=== PATIENT | male | born 1955 | race Caucasian/White ===

== ENCOUNTER → 2017-12-24 | Day surgery (SDC) | payer OTHER ==
[~2017-12-24] MED LIST: ALBU8.5H8 INH; ALBUTEROL SULFATE 2.5 MG/3 ML NEBU. ONE; ASPI81TA50 PO; CARV3.12 PO; HYDR25TA9 PO; LIDOCAINE 2% PF Vial for OR 5 ML VIAL. ONE; METF500T5 PO; NIAC1000 PO; PROPOFOL 40 ML IV ONE; SIMV10TA PO; TELM80TA PO
== END ==
LOC: SURG 10:27
PROVIDERS: ATTEND Internal Medicine Gastroenterology
DX: Z12.11 Encounter for screening for malignant neoplasm of colon (principal); K63.5 Polyp of colon; E11.9 Type 2 diabetes mellitus without complications; I10 Essential (primary) hypertension; Z88.8 Allergy status to other drugs, medicaments and biological substances
CPT/HCPCS: 45380; 82947; 88305; J2704; J7613; J2001

== ENCOUNTER → 2020-07-25 | Outpatient (CLI) | payer MEDICARE, OTHER ==
[2017-12-24 13:30] VITALS: BP 127/61
[~2020-07-25] MED LIST changes: +ALBU2.5V8 INH; -ALBU8.5H8 INH; -ALBUTEROL SULFATE 2.5 MG/3 ML NEBU. ONE; +HYDR-2145 PO; -HYDR25TA9 PO; -LIDOCAINE 2% PF Vial for OR 5 ML VIAL. ONE; +METF500T16 PO; -METF500T5 PO; -PROPOFOL 40 ML IV ONE
== END ==
LOC: LAB 09:32
PROVIDERS: ATTEND Family Medicine
DX: U07.1 COVID-19 (principal)
CPT/HCPCS: U0003

== ENCOUNTER 2020-08-01 10:24 | Emergency (ER) | payer MEDICARE, OTHER ==
[~2020-08-01] VITALS: Ht 172.7 cm; Wt 91.0 kg
--- NOTE | 2020-08-01 10:39 | PHYS DOC ---
General Adult HPI: HPI: History obtained from patient. Patient is a 65-year-old male with a history of [id number] diabetes, asthma who presents with chief complaint of shortness of breath. Patient notes that he did test positive for Covid approximately 4 days ago. He states he is felt generally fatigued throughout that time.. He states that he began developing shortness of breath last night. He states he has also had a dry cough. Denies any orthopnea or bendopnea. Denies any objective fevers. Denies any chest pain. States he has been trying his albuterol Hailer at home with minimal relief. Denies any known exposure to coronavirus. Denies any recent steroids or antibiotics. Denies syncope. S tates he has had lack of appetite. Does not require oxygen at home. States that shortness breath seems to be worse when he ambulates. No other complaints. Review of Systems: Review of Systems: Constitutional: Positive for fatigue Eyes: Denies change in visual acuity HENT: Denies nasal congestion or sore throat Respiratory: Positive for cough and shortness of breath Cardiovascular: Denies chest pain or edema GI: Denies abdominal pain, nausea, vomiting, bloody stools or diarrhea : Denies dysuria Musculoskeletal: Denies back pain or joint pain Integument: Denies rash Neurologic: Denies headache, focal weakness or sensory changes Endocrine: Denies polyuria or polydipsia Lymphatic: Denies swollen glands Psychiatric: Denies depression or anxiety Allergies: Allergies: Allergies Coded Allergies Type Severity Reaction Last Updated Verified lisinopril Allergy Unknown 12/15/17 Yes Physical Exam: PE: Constitutional: Well developed, well nourished, no acute distress, non-toxic appearance. [] HENT: Normocephalic, atraumatic, bilateral external ears normal, oropharynx moist, no oral exudates, nose normal. [] Eyes: PERRLA, EOMI, conjunctiva normal, no discharge. [] Neck: Normal range of motion, no tenderness, supple, no stridor. [] Cardiovascular:Heart rate regular rhythm, no murmur [] Lungs & Thorax: 76% on room air. Rhonchorous breath sounds noted throughout. No obvious wheezes appreciated. Mildly tachypneic. No accessory muscle usage noted. Speaking in full sentences. Abdomen: soft, no tenderness, no masses, no pulsatile masses. [] Skin: Warm, dry, no erythema, no rash. [] Back: No tenderness, no CVA tenderness. [] Extremities: No tenderness, no cyanosis, no clubbing, ROM intact, no edema. [] Neurologic: Alert and oriented X 3, normal motor function, normal sensory function, no focal deficits noted. [] Psychologic: Affect normal, judgement normal, mood normal. [] Current Patient Data: Labs: Laboratory Tests Test 08/01/20 10:40 White Blood Count 8.5 x10^3/uL Red Blood Count 5.43 x10^6/uL Hemoglobin 15.2 g/dL Hematocrit 45.0 % Mean Corpuscular Volume 83 fL Mean Corpuscular Hemoglobin 28 pg Mean Corpuscular Hemoglobin Concent 34 g/dL Red Cell Distribution Width 13.3 % Platelet Count 349 x10^3/uL Neutrophils (%) (Auto) 88 % Lymphocytes (%) (Auto) 8 % Monocytes (%) (Auto) 3 % Eosinophils (%) (Auto) 0 % Basophils (%) (Auto) 0 % Neutrophils # (Auto) 7.5 x10^3uL Lymphocytes # (Auto) 0.7 x10^3/uL Monocytes # (Auto) 0.3 x10^3/uL Eosinophils # (Auto) 0.0 x10^3/uL Basophils # (Auto) 0.0 x10^3/uL Sodium Level 137 mmol/L Potassium Level 3.9 mmol/L Chloride Level 101 mmol/L Carbon Dioxide Level 26 mmol/L Anion Gap 10 Blood Urea Nitrogen 21 mg/dL Creatinine 1.0 mg/dL Estimated GFR (Cockcroft-Gault) 74.8 BUN/Creatinine Ratio 21 Glucose Level 141 mg/dL Calcium Level 8.6 mg/dL Magnesium Level 2.6 mg/dL Total Bilirubin 0.6 mg/dL Aspartate Amino Transf (AST/SGOT) 59 U/L Alanine Aminotransferase (ALT/SGPT) 60 U/L Alkaline Phosphatase 77 U/L Troponin I Quantitative < 0.017 ng/mL Total Protein 7.3 g/dL Albumin 2.4 g/dL Albumin/Globulin Ratio 0.5 Current Medications Medications (Trade) Dose Ordered Sig/Mariel Route PRN Reason Start Time Stop Time Status Last Admin Dose Admin Dexamethasone (Decadron) 10 mg 1X ONCE PO 08/01/20 10:45 08/01/20 10:46 DC 08/01/20 10:52 Albuterol Sulfate (Ventolin Hfa Inhaler) 3 puff Q4HRS W/A INH 08/01/20 11:00 08/01/20 10:47 Sodium Chloride 1,000 ml @ 100 mls/hr 1X ONCE IV 08/01/20 10:45 08/01/20 20:44 08/01/20 10:47 Dexamethasone Sodium Phosphate (Decadron) 10 mg STK-MED ONCE .ROUTE 08/01/20 10:43 08/01/20 10:44 DC Vancomycin HCl 2.5 gm/Sodium Chloride 500 ml @ 250 mls/hr 1X ONCE IV 08/01/20 11:30 08/01/20 11:30 DC Piperacillin Sod/ Tazobactam Sod 3.375 gm/Sodium Chloride 50 ml @ 100 mls/hr 1X ONCE IV 08/01/20 11:30 08/01/20 11:59 Vancomycin HCl 2 gm/Sodium Chloride 500 ml @ 250 mls/hr 1X ONCE IV 08/01/20 12:00 08/01/20 13:59 Vital Signs: Vital Signs Date Time Temp Pulse Resp B/P (MAP) Pulse Ox O2 Delivery O2 Flow Rate FiO2 08/01/20 11:15 76 18 110/62 (78) 92 Nasal Cannula 5.0 08/01/20 10:26 72 20 133/70 (91) 73 Room Air EKG: EKG: EKG consistent with normal sinus rhythm. Ventricular rate of 73 bpm. [place] normal. Intervals normal. No acute ischemic changes noted. [] Radiology/Procedures: Radiology/Procedures: [address] [address] IMAGING REPORT Signed PATIENT: JEROME CLARK ACCOUNT: [id number] : 1955 LOCATION: ER AGE: 65 SEX: M EXAM STATUS: REG ER ORD. PHYSICIAN: BETH NAGEL DO REASON: SOB, COVID +, COUGH PROCEDURE: CHEST AP ONLY Examination: XR CHEST 1V History: Reason: SOB, COVID +, COUGH / Comparison/Correlation: None Findings: Portable upright frontal view the chest was obtained. Heart size is normal. No pneumothorax. Patchy infiltrates in the left lower lung field. Right lung field is unremarkable. Elevation of right hemidiaphragm noted. Bony structures are intact. Impression: Left lower lung field patchy infiltrates. Follow-up to resolution recommended. Electronically signed by: Khari Dong MD (08/01/2020 11:15 AM) [id number] DICTATED AND SIGNED BY: KHARI DONG MD DATE: 08/01/20 1114 CC: PCP,SHARON; BETH NAGEL DO ~MTH0 0 [] Heart Score: Risk Factors: Risk Factors: DM, Current or recent (<one month) smoker, HTN, HLP, family history of CAD, obesity. Risk Scores: Score 0 - 3: 2.5% MACE over next 6 weeks - Discharge Home Score 4 - 6: 20.3% MACE over next 6 weeks - Admit for Clinical Observation Score 7 - 10: 72.7% MACE over next 6 weeks - Early Invasive Strategies Course & Med Decision Making: Course & Med Decision Making Pertinent Labs and Imaging studies reviewed. (See chart for details) [] Patient is a pleasant 65-year-old male who presents with chief complaint of shortness of breath. Patient did test positive for coronavirus approximately week ago. Chest x-ray does show diffuse interstitial pattern. Labs been grossly unremarkable. Initially the patient was 76% on room air. He did respond quickly to 5 L nasal cannula. He is satting at approximate 91% at this time. He showed no signs of respiratory deterioration or impending failure. He is currently 91% on nasal cannula. Patient was given oral Decadron. IV vancomycin and Zosyn were administered. Blood cultures pending. 1248: After being monitored in the emergency department patient did develop increasing oxygen requirement. He was escalated to a nonrebreather and has tolerated this well. Given his increase in oxygen requirement I do feel he would best be monitored at [facility]. Patient be transferred to their facility for further care. Antony Disclaimer: Antony Disclaimer: This electronic medical record was generated, in whole or in part, using a voice recognition dictation system. Departure Departure: Impression: Primary Impression: Acute respiratory failure with hypoxia Additional Impression: COVID-19 Disposition: 02 DC/TRF OTHER SHORT TERM HOS Condition: STABLE Referrals: PCP,SHARON (PCP) Critical Care Time The patient had a high probability of sudden, clinically significant deterioration, which required the highest level of physician preparedness to intervene urgently. I managed life or organ supporting interventions that required frequent re-assessment throughout their stay in the emergency department. The total critical care time spent managing their case, separate from other billable procedures, was 15 minutes. BETH NAGEL DO Aug 01, 2020 10:39
[2020-08-01] MEDS ORDERED: DEXAMETHASONE SOD PHOS 10 MG/ML VIAL. ONE (10:43)
[2020-08-01] MEDS ORDERED: DEXAMETHASONE 4 MG TABLET PO ONE (10:45)
[2020-08-01] MEDS ORDERED: IV NORMAL SALINE 1,000ML 1,000 ML IV ONE (10:45)
[2020-08-01] MEDS: ALBUTEROL SULFATE 8GM INHALER. INH SCH ×2 (10:47→19:05)
--- NOTE | 2020-08-01 11:03 | EKG ---
[address] [address] Test Date: 2020-08-01 Test Time: 10:53:46 Pat Name: JEROME CLARK Department: Room: Gender: M [employer]: JAMEY : 1955 Requested By: BETH NAGEL Order Number: [id number] Reading MD: Measurements Intervals [place] Rate: 73 P: WA: QRS: 13 QRSD: 84 T: 16 QT: 380 QTc: 422 Interpretive Statements ATRIAL FLUTTER ABNORMAL ECG RI6.02 No previous ECG available for comparison
--- NOTE | 2020-08-01 11:17 | RAD ---
Examination: XR CHEST 1V History: Reason: SOB, COVID +, COUGH / Comparison/Correlation: None Findings: Portable upright frontal view the chest was obtained. Heart size is normal. No pneumothorax . Patchy infiltrates in the left lower lung field. Right lung field is unremarkable. Elevation of rig ht hemidiaphragm noted. Bony structures are intact. Impression: Left lower lung field patchy infiltrates. Follow-up to resolution recommended. Electronically signed by: Khari Sanz MD (08/01/2020 11:15 AM) [id number]
[2020-08-01 11:25] LABS: CALCIUM 8.6 mg/dL (8.5-10.1); GFR 74.8; POTASSIUM 3.9 mmol/L (3.5-5.1)
[2020-08-01 11:26] LABS: BASO % 0 % (0-3); EOS % 0 % (0-3); HEMOGLOBIN 15.2 g/dL (13.0-17.5); LYMPH # 0.7 x10^3/uL (1.0-4.8); LYMPH % 8 % (24-48); MEAN CORPUSCULAR HEMOGLOBIN 28 pg (25-35); MEAN CORPUSCULAR HGB CONC 34 g/dL (31-37); MEAN CORPUSCULAR VOLUME 83 fL (79-100); MONO # 0.3 x10^3/uL (0.0-1.1); MONO % 3 % (0-9); NEUT # 7.5 x10^3uL (1.8-7.7); NEUT % 88 % (31-73); PLATELET COUNT 349 x10^3/uL (140-400); RED BLOOD COUNT 5.43 x10^6/uL (4.30-5.70); RED CELL DISTRIBUTION WIDTH 13.3 % (11.5-14.5); WHITE BLOOD COUNT 8.5 x10^3/uL (4.0-11.0)
[2020-08-01] MEDS ORDERED: VANCOMYCIN 2.5 GM in IV NORMAL SALINE 500ML 500 ML IV ONE (11:30)
[2020-08-01] MEDS ORDERED: PIPERACILLIN/TAZOBACTAM 3.375 GM in IV NORMAL SALINE 50ML 50 ML IV ONE (11:30)
[2020-08-01 11:31] LABS: ALBUMIN 2.4 g/dL (3.4-5.0); ALBUMIN/GLOBULIN RATIO 0.5 (1.0-1.7); MAGNESIUM 2.6 mg/dL (1.8-2.4); TOTAL BILIRUBIN 0.6 mg/dL (0.2-1.0); TOTAL PROTEIN 7.3 g/dL (6.4-8.2)
[2020-08-01] MEDS ORDERED: VANCOMYCIN 2 GM in IV NORMAL SALINE 500ML 500 ML IV ONE (12:00)
[2020-08-01] MEDS ORDERED: IV NORMAL SALINE 50ML 50 ML ONE (14:39)
[2020-08-01] MEDS ORDERED: PIPERACILLIN/TAZOBACTAM 3.375 GM VIAL IV ONE (14:39)
[2020-08-01 20:55] VITALS: BP 126/71
== END 2020-08-01 21:03 | disposition short-term general hospital (02) ==
LOC: ER 10:24
DX: U07.1 COVID-19 (principal); J96.01 Acute respiratory failure with hypoxia; E11.9 Type 2 diabetes mellitus without complications; J45.909 Unspecified asthma, uncomplicated; Z88.8 Allergy status to other drugs, medicaments and biological substances
CPT/HCPCS: 36415; 71045; 80053; 82728; 83735; 84484; 85025; 85379; 87040; 93005; 94640; 96361; 96365; 96366; 96367; 99285; J2543; J3370; J7030; J7040; J7613; J8540; 94664